=== PATIENT | female | born 1970 | race African-American/Black ===

== ENCOUNTER 2017-01-31 00:35 | Emergency (ER) | payer BC ==
[~2017-01-31] VITALS: Ht 162.6 cm; Wt 64.0 kg
[2017-01-31] MEDS ORDERED: HYDROCODONE/ACETAMINOPHEN 5/325MG TABLET PO STA (01:12)
[2017-01-31] MEDS ORDERED: BACITRACIN ZINC OINT UDPKT TOP ONE (01:15)
[2017-01-31 07:02] VITALS: BP 118/67
== END 2017-01-31 07:05 | disposition home or self-care (01) ==
LOC: ER 00:35
DX: S09.90XA Unspecified injury of head, initial encounter (principal); S01.81XA Laceration without foreign body of other part of head, initial encounter; E04.2 Nontoxic multinodular goiter; Z88.5 Allergy status to narcotic agent; V49.88XA Car occupant (driver) (passenger) injured in other specified transport accidents, initial encounter; Y93.89 Activity, other specified; Y92.410 Unspecified street and highway as the place of occurrence of the external cause; Y99.8 Other external cause status
CPT/HCPCS: 70450; 70486; 72125; 81025; 99284